=== PATIENT | female | born 1975 | race Caucasian/White ===

== ENCOUNTER 2017-09-08 21:27 | Emergency (ER) | payer MEDICAID ==
[~2017-09-08] VITALS: Ht 167.6 cm; Wt 64.5 kg
[~2017-09-08 21:27] MED LIST: HYDR25CA PO; NO HOME MEDS
[2017-09-09] MEDS ORDERED: CLIN150C2 PO (00:10)
[2017-09-09] MEDS ORDERED: clindamycin 150mg capsule PO ONE (00:10)
[2017-09-09] MEDS ORDERED: acetaminophen 325mg tablet PO ONE (00:10)
[2017-09-09 00:18] VITALS: BP 133/87
== END 2017-09-09 00:20 | disposition home or self-care (01) ==
LOC: ER 21:27
DX: H66.91 Otitis media, unspecified, right ear (principal); F15.10 Other stimulant abuse, uncomplicated; Z90.710 Acquired absence of both cervix and uterus; Z88.6 Allergy status to analgesic agent; Z88.1 Allergy status to other antibiotic agents
CPT/HCPCS: 99283

== ENCOUNTER 2022-04-07 00:21 | Emergency (ER) | payer MEDICAID ==
[~2022-04-07] VITALS: Ht 167.6 cm; Wt 72.7 kg
[2022-04-07] MEDS ORDERED: diphenhydrAMINE 25mg capsule PO ONE (00:45)
[2022-04-07] MEDS ORDERED: predniSONE 20 mg tablet PO ONE (00:45)
[2022-04-07] MEDS ORDERED: dexamethasone sod phosphate 10mg/ml inj IM STA (01:02)
[2022-04-07] MEDS ORDERED: diphenhydrAMINE 50 mg/ml inj IM ONE (01:05)
[2022-04-07 03:00] VITALS: BP 117/72
[2022-04-07] MEDS ORDERED: PRED20TA PO (03:38)
[2022-04-07] MEDS ORDERED: EPIN0.3P3 IM (03:38)
[2022-04-07] MEDS ORDERED: famotidine 20mg tablet PO SCH (08:00)
== END 2022-04-07 03:51 | disposition home or self-care (01) ==
LOC: ER 00:22
DX: F15.90 Other stimulant use, unspecified, uncomplicated (principal); T78.1XXA Other adverse food reactions, not elsewhere classified, initial encounter; Z87.11 Personal history of peptic ulcer disease; Z90.710 Acquired absence of both cervix and uterus; Z98.890 Other specified postprocedural states; Z72.89 Other problems related to lifestyle; Z56.0 Unemployment, unspecified; Z88.1 Allergy status to other antibiotic agents; Z88.6 Allergy status to analgesic agent; Z79.899 Other long term (current) drug therapy; Y92.89 Other specified places as the place of occurrence of the external cause
CPT/HCPCS: 96372; 99285; J1100; J1200

== ENCOUNTER 2023-09-16 00:05 | Emergency (ER) | payer MEDICAID, OTHER ==
[~2023-09-16] VITALS: Ht 167.6 cm; Wt 68.2 kg
[~2023-09-16 00:05] MED LIST changes: +EPIN0.3P3 IM
[2023-09-16 00:22] VITALS: BP 145/104; PULSE 88; RESP 19; TEMP 97.8; O2SAT 100
[2023-09-16] MEDS: ondansetron 4mg rapidly disintigrating tab PO ONE (01:21)
[2023-09-16 01:38] LABS: URINE HCG NEGATIVE (NEG)
[2023-09-16 01:39] LABS: BILIRUBIN,URINE NEGATIVE (Neg); COLOR,URINE YELLOW (Yellow); GLUCOSE, URINE NEGATIVE (Neg); KETONES,URINE NEGATIVE (Neg); LEUKOCYTE ESTERASE ,URINE TRACE (Neg); NITRITES, URINE POSITIVE (Neg); OCCULT BLOOD,URINE NEGATIVE (Neg); PROTEIN,URINE NEGATIVE (Neg); UROBILINOGEN,URINE 0.2 E.U/dL (0.2-1.0)
[2023-09-16 01:40] LABS: CLARITY,URINE SLIGHTLY CLOUDY (Clear); UA COLLECTION TYPE CLN CATCH MIDSTREAM
[2023-09-16 02:11] LABS: BACTERIA,URINE FEW /HPF (Neg); CAL OXALATE CRYSTALS 1+ /HPF (NEGATIVE); SQUAMOUS EPITHELIAL CELL,UR FEW /LPF (FEW); TRANSITIONAL EPI CELLS,URINE FEW /HPF
[2023-09-16] MEDS: acetaminophen 325mg tablet PO ONE (03:06)
[2023-09-16 03:30] LABS: BASOPHILS # (AUTO) 0.1 X10'3 (0-0.2); BASOPHILS % (AUTO) 0.5 % (0-1); EOSINOPHILS # (AUTO) 0.2 X10'3 (0-0.9); EOSINOPHILS % (AUTO) 1.4 % (0-6); HEMATOCRIT 45.6 % (35.0-45.0); HEMOGLOBIN 15.1 g/dl (12.0-16.0); MEAN CORPUSCULAR HEMOGLOBIN 29.6 PG (27.0-31.0); MEAN CORPUSCULAR HGB CONC 33.1 g/dL (33.0-36.5); MEAN CORPUSCULAR VOLUME 89.4 FL (78-98); MEAN PLATELET VOLUME 8.5 FL (7.4-10.4); MONOCYTES # (AUTO) 0.5 X10'3 (0-0.9); NEUTROPHILS # (AUTO) 13.5 X10'3 (1.8-7.7); NEUTROPHILS % (AUTO) 83.1 % (42-75); PLATELET COUNT 326 X10'3 (140-440); RED CELL DISTRIBUTION WIDTH 13.4 % (11.5-14.5); WHITE BLOOD COUNT 16.3 X10'3 (4.5-11.0)
[2023-09-16 03:40] LABS: ALANINE AMINOTRANSFERASE 26 U/L (12-78); ALBUMIN 3.6 G/DL (3.4-5.0); ALKALINE PHOSPHATASE 116 IU/L (46-116); ANION GAP 6 (8-16); ASPARTATE AMINO TRANSFERASE 14 U/L (10-37); BILIRUBIN,TOTAL 0.5 MG/DL (0.1-1.0); BLOOD UREA NITROGEN 13 MG/DL (7-18); BUN/CREATININE RATIO 16.3 (10.0-20.0); CALCIUM 9.2 MG/DL (8.5-10.1); CHLORIDE 103 MMOL/L (99-107); GLUCOSE 119 MG/DL (70-104); LIPASE 18 U/L (16-77); POTASSIUM 3.9 MMOL/L (3.5-5.1); SODIUM 139 MMOL/L (135-145); TOTAL CARBON DIOXIDE 29.6 MMOL/L (24-32); TOTAL PROTEIN 7.1 G/DL (6.4-8.2); eCRCL 80 ML/MIN; eGFR 76 ML/MIN
[2023-09-16] MEDS ORDERED: ONDA4TAB12 PO (04:02)
[2023-09-16] MEDS ORDERED: SULF1TAB49 PO (04:02)
== END 2023-09-16 04:13 | disposition home or self-care (01) ==
LOC: ER 00:07
DX: N39.0 Urinary tract infection, site not specified (principal); R10.84 Generalized abdominal pain; Z91.012 Allergy to eggs; Z88.1 Allergy status to other antibiotic agents; Z91.018 Allergy to other foods; Z90.710 Acquired absence of both cervix and uterus; F15.90 Other stimulant use, unspecified, uncomplicated
CPT/HCPCS: 36415; 80053; 81001; 81025; 83690; 85025; 87088; 99283

== ENCOUNTER 2024-01-12 17:17 | Emergency (ER) | payer OTHER ==
[~2024-01-12] VITALS: Ht 167.6 cm; Wt 68.2 kg
[~2024-01-12 17:17] MED LIST changes: +ONDA-243 PO
[2024-01-12 18:27] LABS: BASOPHILS % (AUTO) 0.5 % (0-1); EOSINOPHILS # (AUTO) 0.4 X10'3 (0-0.9); EOSINOPHILS % (AUTO) 4.6 % (0-6); HEMATOCRIT 43.8 % (35.0-45.0); HEMOGLOBIN 14.6 g/dl (12.0-16.0); LYMPHOCYTES # (AUTO) 2.7 X10'3 (1.1-4.8); LYMPHOCYTES % (AUTO) 32.5 % (21-51); MEAN CORPUSCULAR HEMOGLOBIN 30.4 PG (27.0-31.0); MEAN CORPUSCULAR HGB CONC 33.4 g/dL (33.0-36.5); MEAN CORPUSCULAR VOLUME 91.1 FL (78-98); MEAN PLATELET VOLUME 8.6 FL (7.4-10.4); MONOCYTES # (AUTO) 0.5 X10'3 (0-0.9); MONOCYTES % (AUTO) 5.7 % (2-12); NEUTROPHILS # (AUTO) 4.7 X10'3 (1.8-7.7); NEUTROPHILS % (AUTO) 56.7 % (42-75); PLATELET COUNT 313 X10'3 (140-440); WHITE BLOOD COUNT 8.3 X10'3 (4.5-11.0)
[2024-01-12] MEDS: ondansetron 4mg rapidly disintigrating tab PO ONE (18:43)
[2024-01-12] MEDS: HYDROcodone/acetaminophen 5mg/325mg tablet PO ONE (18:44)
[2024-01-12 18:53] LABS: ALBUMIN 3.9 G/DL (3.4-5.0); ANION GAP 5 (8-16); BLOOD UREA NITROGEN 12 MG/DL (7-18); BUN/CREATININE RATIO 18.5 (10.0-20.0); CALCIUM 9.6 MG/DL (8.5-10.1); CHLORIDE 105 MMOL/L (99-107); CREATININE 0.65 MG/DL (0.40-0.90); GLUCOSE 87 MG/DL (70-104); SODIUM 141 MMOL/L (135-145); TOTAL CARBON DIOXIDE 30.7 MMOL/L (24-32); eCRCL 98 ML/MIN; eGFR > 90 ML/MIN
[2024-01-12 19:07] LABS: BILIRUBIN,URINE NEGATIVE (Neg); CLARITY,URINE CLEAR (Clear); COLOR,URINE STRAW (Yellow); GLUCOSE, URINE NEGATIVE (Neg); KETONES,URINE NEGATIVE (Neg); LEUKOCYTE ESTERASE ,URINE SMALL (Neg); OCCULT BLOOD,URINE MODERATE (Neg); PH,URINE 6.5 (4.8-8.0); PROTEIN,URINE NEGATIVE (Neg); UROBILINOGEN,URINE 0.2 E.U/dL (0.2-1.0)
[2024-01-12 19:12] LABS: NITRITES, URINE NEGATIVE (Neg); UA COLLECTION TYPE CLN CATCH MIDSTREAM
[2024-01-12 19:33] LABS: MUCUS STRANDS NONE SEEN /LPF (Neg); SQUAMOUS EPITHELIAL CELL,UR FEW /LPF (FEW)
[2024-01-12 19:34] LABS: BACTERIA,URINE 1+ /HPF (Neg); WBC,URINE 0-4 /HPF (0-4)
[2024-01-12] MEDS ORDERED: HYDR-3965 PO (20:01)
[2024-01-12] MEDS ORDERED: ONDA-243 PO (20:01)
[2024-01-12] MEDS ORDERED: CEPH250T PO (20:01)
[2024-01-12] MEDS ORDERED: CLIN150C2 PO (20:02)
[2024-01-12] MEDS: clindamycin 150mg capsule PO ONE (20:16)
[2024-01-12 20:20] VITALS: BP 125/89; PULSE 97; RESP 16; TEMP 97.9; O2SAT 97
== END 2024-01-12 20:19 | disposition home or self-care (01) ==
LOC: ER 17:18
DX: N23 Unspecified renal colic (principal); F15.90 Other stimulant use, unspecified, uncomplicated; Z88.8 Allergy status to other drugs, medicaments and biological substances; Z91.018 Allergy to other foods; Z88.1 Allergy status to other antibiotic agents; Z79.2 Long term (current) use of antibiotics; Z79.899 Other long term (current) drug therapy; Z90.710 Acquired absence of both cervix and uterus; Z98.890 Other specified postprocedural states; Z72.89 Other problems related to lifestyle; Z56.0 Unemployment, unspecified; Z87.442 Personal history of urinary calculi
CPT/HCPCS: 36415; 80048; 81001; 84145; 85025; 87088; 99284

== ENCOUNTER 2024-03-27 03:25 | Inpatient (IN) | payer OTHER ==
[~2024-03-27] VITALS: Ht 167.6 cm; Wt 67.3 kg
[2024-03-27] MEDS: ondansetron/PF 4mg/2ml inj IV ONE (04:32)
[2024-03-27] MEDS: morphine 4 MG/ML inj SYRINge IV ONE (04:35)
[2024-03-27 04:37] LABS: BILIRUBIN,URINE NEGATIVE (Neg); CLARITY,URINE CLEAR (Clear); COLOR,URINE YELLOW (Yellow); GLUCOSE, URINE NEGATIVE (Neg); KETONES,URINE NEGATIVE (Neg); LEUKOCYTE ESTERASE ,URINE SMALL (Neg); NITRITES, URINE NEGATIVE (Neg); OCCULT BLOOD,URINE LARGE (Neg); PROTEIN,URINE NEGATIVE (Neg); URINE HCG NEGATIVE (NEG); UROBILINOGEN,URINE 0.2 E.U/dL (0.2-1.0)
[2024-03-27 04:38] LABS: BASOPHILS # (AUTO) 0.1 X10'3 (0-0.2); BASOPHILS % (AUTO) 0.6 % (0-1); EOSINOPHILS # (AUTO) 0.6 X10'3 (0-0.9); EOSINOPHILS % (AUTO) 4.4 % (0-6); HEMATOCRIT 40.2 % (35.0-45.0); LYMPHOCYTES # (AUTO) 3.9 X10'3 (1.1-4.8); LYMPHOCYTES % (AUTO) 30.4 % (21-51); MEAN CORPUSCULAR HEMOGLOBIN 29.1 PG (27.0-31.0); MEAN CORPUSCULAR HGB CONC 32.2 g/dL (33.0-36.5); MEAN CORPUSCULAR VOLUME 90.3 FL (78-98); MEAN PLATELET VOLUME 8.5 FL (7.4-10.4); MONOCYTES # (AUTO) 0.8 X10'3 (0-0.9); NEUTROPHILS # (AUTO) 7.4 X10'3 (1.8-7.7); NEUTROPHILS % (AUTO) 58.6 % (42-75); PLATELET COUNT 361 X10'3 (140-440); RED BLOOD COUNT 4.45 X10'6 (4.20-5.60); WHITE BLOOD COUNT 12.7 X10'3 (4.5-11.0)
[2024-03-27 04:39] LABS: UA COLLECTION TYPE CLN CATCH MIDSTREAM
[2024-03-27 04:48] LABS: BACTERIA,URINE FEW /HPF (Neg); MUCUS STRANDS NONE SEEN /LPF (Neg); SQUAMOUS EPITHELIAL CELL,UR FEW /LPF (FEW)
[2024-03-27 04:51] LABS: ALANINE AMINOTRANSFERASE 27 U/L (12-78); ALBUMIN 3.5 G/DL (3.4-5.0); ALBUMIN/GLOBULIN RATIO 0.9 (1.1-1.5); ALKALINE PHOSPHATASE 116 IU/L (46-116); ANION GAP 8 (8-16); ASPARTATE AMINO TRANSFERASE 14 U/L (10-37); BILIRUBIN,TOTAL 0.7 MG/DL (0.1-1.0); BLOOD UREA NITROGEN 10 MG/DL (7-18); BUN/CREATININE RATIO 14.3 (10.0-20.0); CALCIUM 9.1 MG/DL (8.5-10.1); CHLORIDE 105 MMOL/L (99-107); GLUCOSE 86 MG/DL (70-104); POTASSIUM 3.7 MMOL/L (3.5-5.1); SODIUM 141 MMOL/L (135-145); TOTAL CARBON DIOXIDE 28.2 MMOL/L (24-32); TOTAL PROTEIN 7.2 G/DL (6.4-8.2); eCRCL 90 ML/MIN; eGFR 89 ML/MIN
[2024-03-27] MEDS: proCHLORperazine 10 MG/2 ml inj IV ONE (05:11)
[2024-03-27] MEDS ORDERED: potassium Cl 40MEQ/1/2NS 520ml 520 ML IV PRN (05:15)
[2024-03-27] MEDS ORDERED: proCHLORperazine 10 MG/2 ml inj IV PRN (05:15)
[2024-03-27] MEDS ORDERED: magnesium Cl slow-release 64mg tablet PO PRN (05:15)
[2024-03-27] MEDS ORDERED: magnesium hydroxide 30ml (MOM) UD suspension PO PRN (05:15)
[2024-03-27] MEDS ORDERED: magnesium sulf-water 4G/100mL 100 ML IV PRN (05:15)
[2024-03-27] MEDS ORDERED: magnesium sulf-water 2g/50mL 50 ML IV PRN (05:15)
[2024-03-27] MEDS ORDERED: mag hydrox/Alum hydrox/simeth 30ml oral suspension PO PRN (05:15)
[2024-03-27] MEDS ORDERED: potassium Cl 20 mEq SR tablet PO PRN ×2 (05:15)
[2024-03-27] MEDS ORDERED: acetaminophen 325mg tablet PO PRN (05:15)
[2024-03-27] MEDS ORDERED: CefTRIAXone/D5W-Rocephin 1gm 50 ML IV SCH ×3 (05:15→08:00)
[2024-03-27] MEDS: normal saline 1000ml 1,000 ML IV SCH (05:33)
[2024-03-27] MEDS: HYDROmorphone inj. 0.5 MG/0.5 ML DISP.SYRIN IV PRN (05:34)
[2024-03-27] MEDS: levoFLOXACIN-Levaquin 750MG/D5 150 ML IV STA (05:40)
[2024-03-27 05:41] LABS: MAGNESIUM 2.1 MG/DL (1.5-2.4)
[2024-03-27 07:21] LABS: URINE AMPHETAMINE SCREEN POSITIVE (Neg); URINE BARBITUATE SCREEN NEGATIVE (Neg); URINE BENZODIAZEPINES SCREEN NEGATIVE (Neg); URINE CANNABINOID SCREEN NEGATIVE (Neg); URINE COCAINE SCREEN NEGATIVE (Neg); URINE METHADONE SCREEN NEGATIVE (Neg); URINE OPIATE SCREEN NEGATIVE (Neg); URINE PHENCYCLIDINE SCREEN NEGATIVE (Neg)
[2024-03-27] MEDS: K and/or MAG REPLACEMENT MC SCH (08:00)
[2024-03-27] MEDS: heparin, porcine 5000 units/ml vial SQ SCH (08:00)
[2024-03-27] MEDS: docusate sod 100mg capsule PO SCH (08:00)
[2024-03-27 09:00] VITALS: BP 114/66; PULSE 88; RESP 14; TEMP 98.9; O2SAT 98
[2024-03-27] MEDS: morphine 2 MG/ML inj. syringe IV PRN (17:02)
[2024-03-27 18:00] VITALS: BP 124/64; PULSE 83; RESP 14; TEMP 97.8; O2SAT 99
[2024-03-27 20:00] VITALS: RESP 14; O2SAT 99
[2024-03-27 22:00] VITALS: BP 108/81; PULSE 73; RESP 16; TEMP 97.7; O2SAT 98
[2024-03-28 06:21] LABS: BASOPHILS % (AUTO) 0.4 % (0-1); EOSINOPHILS # (AUTO) 0.6 X10'3 (0-0.9); EOSINOPHILS % (AUTO) 7.6 % (0-6); HEMATOCRIT 38.8 % (35.0-45.0); LYMPHOCYTES # (AUTO) 3.5 X10'3 (1.1-4.8); LYMPHOCYTES % (AUTO) 42.4 % (21-51); MEAN CORPUSCULAR HEMOGLOBIN 30.5 PG (27.0-31.0); MEAN CORPUSCULAR HGB CONC 33.6 g/dL (33.0-36.5); MEAN CORPUSCULAR VOLUME 90.7 FL (78-98); MEAN PLATELET VOLUME 8.8 FL (7.4-10.4); MONOCYTES # (AUTO) 0.6 X10'3 (0-0.9); MONOCYTES % (AUTO) 6.9 % (2-12); NEUTROPHILS # (AUTO) 3.5 X10'3 (1.8-7.7); NEUTROPHILS % (AUTO) 42.7 % (42-75); PLATELET COUNT 325 X10'3 (140-440); RED BLOOD COUNT 4.27 X10'6 (4.20-5.60); RED CELL DISTRIBUTION WIDTH 13.1 % (11.5-14.5); WHITE BLOOD COUNT 8.3 X10'3 (4.5-11.0)
[2024-03-28 06:48] LABS: ALANINE AMINOTRANSFERASE 20 U/L (12-78); ALBUMIN 2.8 G/DL (3.4-5.0); ALBUMIN/GLOBULIN RATIO 0.8 (1.1-1.5); ALKALINE PHOSPHATASE 95 IU/L (46-116); ANION GAP 9 (8-16); ASPARTATE AMINO TRANSFERASE 14 U/L (10-37); BILIRUBIN,TOTAL 0.8 MG/DL (0.1-1.0); BLOOD UREA NITROGEN 10 MG/DL (7-18); BUN/CREATININE RATIO 15.9 (10.0-20.0); CALCIUM 8.6 MG/DL (8.5-10.1); CHLORIDE 109 MMOL/L (99-107); CREATININE 0.63 MG/DL (0.40-0.90); GLUCOSE 82 MG/DL (70-104); MAGNESIUM 2.1 MG/DL (1.5-2.4); POTASSIUM 3.9 MMOL/L (3.5-5.1); SODIUM 144 MMOL/L (135-145); TOTAL CARBON DIOXIDE 25.6 MMOL/L (24-32); TOTAL PROTEIN 6.1 G/DL (6.4-8.2); eCRCL 100 ML/MIN; eGFR > 90 ML/MIN
[2024-03-28] MEDS: levoFLOXACIN-Levaquin 750MG/D5 150 ML IV SCH (07:50)
[2024-03-28] MEDS: ondansetron/PF 4mg/2ml inj IV PRN (07:51)
[2024-03-28 08:00] VITALS: RESP 16; O2SAT 98
[2024-03-28 08:51] VITALS: RESP 16
[2024-03-28] MEDS ORDERED: LEVO750T68 PO (12:10)
[2024-03-28] MEDS ORDERED: ACET-1008 PO ×3 (12:11→12:15)
[2024-03-28] MEDS ORDERED: LACT1CAP26 PO (12:18)
[2024-03-28] MEDS ORDERED: PANT-47 PO (12:18)
[2024-03-28] MEDS ORDERED: ACET-1131 PO (12:18)
== END 2024-03-28 15:45 | disposition home or self-care (01) | DRG 690 ==
LOC: ER 03:26 → ED HOLD 05:18 → ORTHO 4S 06:52
PROVIDERS: ADMIT Internal Medicine Critical Care Medicine; ATTEND Family Medicine
DX: N13.6 Pyonephrosis (principal); F10.90 Alcohol use, unspecified, uncomplicated; N28.1 Cyst of kidney, acquired; Z88.8 Allergy status to other drugs, medicaments and biological substances; Z88.6 Allergy status to analgesic agent; Z91.012 Allergy to eggs; Z90.710 Acquired absence of both cervix and uterus; Z87.11 Personal history of peptic ulcer disease
CPT/HCPCS: 36415; 74176; 80053; 80305; 81001; 81025; 83605; 83735; 85025; 87040; 87081; 87088; 96374; 96375; 99285; G0378; J0780; J1171; J1644; J1956; J2270; J2405; J7030